=== PATIENT | female | born 1960 | race Caucasian/White ===

== ENCOUNTER 2025-05-08 16:39 | Emergency (ER) | payer MEDICARE, SELFPAY ==
[2025-05-08 16:42] VITALS: BP 115/72
--- NOTE | 2025-05-08 17:09 | ED.GENMED ---
History of Present Illness
General
Chief Complaint: Abnormal Lab Value
Time Seen by Provider: 05/08/25 17:09
History of Present Illness
History of Present Illness:
FOCUSED PAST MEDICAL HISTORY
- History of left femur removal due to infection, VSD, smoking till age of 22, hyperlipidemia, migraines
REVIEW OF OLD RECORDS
- Hemoglobin was 10.7 in September 2022
Note:
CHIEF COMPLAINT(S)
Increasing shortness of breath.
HISTORY OF PRESENT ILLNESS
The patient presents with an increasing shortness of breath, which led her primary care doctor to refer her for evaluation. She has a history of iron deficiency anemia and is scheduled for an iron infusion on the upcoming Sunday. Recently, she has
experienced episodes of tachycardia, although her heart rate normalized prior to discharge. She denies experiencing any chest pain, weight gain, or lower extremity edema. Her most recent hemoglobin level was recorded at 10.7 in 2022, with another
recent measurement of 8.8. Her iron level has been noted at 40, which remains within the normal range. There is no clear indication for blood transfusion or hospital admission. The patient is aware of her hiatal hernia, and a digital rectal
examination revealed no growth or fecal occult blood.
PHYSICAL EXAM
General: Alert, no acute distress.
Skin: Warm, dry.
Head: Normocephalic, atraumatic.
Neck: Supple, trachea midline.
Eye, Ears, Nose, Mouth, and Throat: Oral mucosa moist.
Cardiovascular: Normal peripheral perfusion, no edema.
Respiratory: Respirations are non-labored. She is not tachycardic nor tachypneic and breath sounds are clear
Gastrointestinal: Abdomen nondistended.
Back: Normal range of motion, normal alignment.
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
Neurological: Alert and oriented to person, place, time, and situation. No focal neurological deficit observed.
Psychiatric: Cooperative, appropriate mood and affect.
PROBLEM LIST
1. Acute: Shortness of breath.
2. Chronic: Iron deficiency anemia, scheduled for an iron infusion.
PLAN
The patient is to follow up with her planned iron infusion on the scheduled date. Monitoring of hemoglobin and iron levels will continue to assess response to treatment.
DIFFERENTIAL DIAGNOSIS
The Differential Diagnosis includes, in no particular order and is not limited to:
1. Anemia-induced dyspnea
2. Pulmonary embolism
3. Congestive heart failure
4. Chronic obstructive pulmonary disease exacerbation
5. Acute coronary syndrome
6. Pulmonary hypertension
7. Asthma exacerbation
8. Pneumonia
9. Anxiety
10. Hiatal hernia-related symptoms
RADIOLOGY
- CT shows no PE and shows a large hiatal hernia
Sinus on the monitor
LABS
- Hemoglobin 8.8, troponin and BNP unremarkable
UPDATE
SUMMARY OF ENCOUNTER
The patient presented with an increasing shortness of breath and was assessed in the emergency department. Her workup was relatively unremarkable for acute causes of her symptoms. Although her hemoglobin level has dropped to 8.8 from a recent
outpatient level of 9.2, she is being managed as an outpatient for iron deficiency anemia with an upcoming iron infusion scheduled. She is currently anticoagulated and her stool is heme-negative. There is no clear indication for admission, therefore
she will continue outpatient management.
DISPOSITION
Discharge.
PLAN
The patient is to continue with the planned iron infusion. Monitoring of hemoglobin levels will continue to ensure an adequate response to treatment.
INDEPENDENT REVIEW OF LABS AND INTERPRETATION OF TESTS
My independent review of hemoglobin levels indicates a decrease to 8.8 from a previous outpatient measurement of 9.2. Stool is heme-negative.
MEDICATION RECONCILIATION
- Hemoglobin levels to be monitored.
- The patient is already anticoagulated.
MEDICAL DECISION MAKING
- Number and Complexity of Problems Addressed: Chronic conditions affecting care include iron deficiency anemia and the ongoing management thereof.
- Data:
- Category 1: Reviewed current and recent hemoglobin levels.
- Category 2: Independent analysis of lab results, noting the decrease in hemoglobin.
- Risk: Consideration of Admission/Observation: Escalation of care including admission/observation was considered given the complexity and risk of the patients presenting complaint and underlying comorbidities. However, ultimately, outpatient
management was deemed appropriate. The workup was reassuring, with no acute life-threatening processes identified, and the patient is reliable for follow-up.
DIAGNOSIS
- Iron deficiency anemia, uncomplicated (ICD-10: D50.9)
Past History
Past History
ED Past Medical History: Asthma, Fibromyalgia, GERD, Hypercholesterolemia, Other (TIA, Endometriosis, Sleep apnea) and Other (Recurrent left hip MRSA infection)
ED Past Surgical History: Appendectomy, Cholecystectomy and Orthopedic
Social History
Tobacco: Former smoker
Alcohol: None
Personal:
Living: with family
Phy Exam
Physical Exam
Physical Exam:
See HPI
Course
Orders/Labs/Results
Orders:
Orders
05/08/25 17:19
CT Chest PE Study Urgent
Comment:
Reason For Exam: GONZALES/SOB, immobile
05/08/25 17:29
Type+Screen Urgent
Basic Metabolic Panel Urgent
Complete Blood Count/With Diff Urgent
Iron Urgent
NT-proBNP Urgent
Troponin I Urgent
Abnormal Lab Results
05/08/25
17:29
RBC 2.95 L 10^6/uL
(4.20-5.40)
Hgb 8.8 L g/dL
(12.0-16.0)
Hct 28.2 L %
(37.0-47.0)
MCHC 31.2 L g/dL
(33.0-37.0)
RDW 19.9 H %
(11.5-14.5)
Absolute Lymphs (auto) 1.1 L 10^3/uL
(1.2-3.4)
Absolute Monos (auto) 0.7 H 10^3/uL
(0.1-0.6)
Monocytes % 12.9 H %
(1.7-9.3)
BUN 21 H mg/dl
(7-17)
05/08/25 17:29
05/08/25 17:29
Vital Signs
Initial and Last Documented VS:
Initial Vital Signs
Temp Pulse Resp BP Pulse Ox
36.8 C 81 16 115/72 98
05/08/25 16:42 05/08/25 16:42 05/08/25 16:42 05/08/25 16:42 05/08/25 16:42
Last Documented Vital Signs
Temp Pulse Resp BP Pulse Ox
36.8 C 96 18 105/75 99
05/08/25 16:42 05/08/25 19:03 05/08/25 19:03 05/08/25 19:01 05/08/25 19:07
*Pulse Oximetry
SaO2: 98
Oxygen Mode of Delivery: Room air
Patient hypoxic: no
*Critical Care Note
Total Time (30-74mins, 75-104mins- exclusive of procedures): Not Applicable
ED Attending Note
-
Portions of this chart may have been created with voice recognition software.� Occasional wrong word or��sound alike� substitutions may have occurred due to the inherent limitations of voice recognition software.
Discharge Plan
Departure
Patient Disposition: Home (Routine Discharge)
Date of Disposition: 05/08/25
Time of Disposition: 20:09
Patient with high blood pressure during this ER visit?: Yes
Discharge Problem:
Shortness of breath
Instructions: Shortness of breath, BLOOD PRESSURE
Prescriptions:
No Action
C,E,copper,zinc [id number] 1 CAP capsule
2 cap PO DAILY
albuterol sulfate 1 PUFF HFA aerosol inhaler
2 puff inhalation R Q4HPRN PRN (Reason: shortness of breath) Qty: 1 0RF
prednisone 5 MG tablet
5 mg PO DAILY
clopidogrel 75 MG tablet
75 mg PO DAILY
famotidine 20 MG tablet
20 mg PO BID
calcium carbonate [Oyster Shell Calcium 500] 500 MG tablet
1,000 mg PO HS
calcium carbonate [Antacid (calcium carbonate)] 1 TABLET tablet,chewable
1 tab PO Q4HPRN PRN (Reason: gerd)
hydroxychloroquine 200 MG tablet
400 mg PO QPM
magnesium [magnesium gluconate] 200 MG tablet
1,350 mg PO DAILY
Patient Comments:
patient has 450mg tablets at home take 3 tabs
High Potency Probiotic 1 CAP capsule
2 cap PO DAILY
cholecalciferol (vitamin D3) 2,000 UNITS tablet
5,000 units PO DAILY
multivitamin with folic acid [Tab-A-Kerry] 1 TABLET tablet
1 tab PO DAILY
B-complex with vitamin C 1 CAPLET tablet
2 cap PO DAILY
turmeric root extract 500 MG capsule
1,500 mg PO DAILY
Rhopressa 2.5 ML drops
1 drp LEFT EYE QPM
pravastatin 40 mg tablet
40 mg PO QPM
folic acid 1 mg Tablet
1 mg PO DAILY
duloxetine 60 mg capsule,delayed release(DR/EC)
60 mg PO DAILY
pregabalin 150 mg capsule
150 mg PO HS
Nyquil Liquid
30 ml PO HSPRN PRN (Reason: cough, congestion)
loperamide 2 mg Capsule
2 mg PO Q6HPRN PRN (Reason: diarrhea) Qty: 0 0RF
oxycodone 5 mg tablet, oral only
5 mg PO Q4H PRN (Reason: severe pain) Qty: 30 0RF
Rx Instructions:
1.5 tabs (7.5mg) every 4 hours as needed
Referrals:
Antelmo Rosado, [Family Provider, General]
Activity Restrictions/Additional Instructions:
The CAT scan of the lungs showed no blood clot. A large hiatal hernia is noted. There is no sign of heart attack or congestive heart failure. Your hemoglobin level is 8.8 and last records here show a hemoglobin of 10.9 in September 2022. There is
no blood noted in your stool on digital rectal examination. Iron level tonight was still within range at 40. Follow-up with your doctors as an outpatient. Return here if worse or other concerns.
Interventions
Interventions:
*Risk Screen - Suicide Last Done: 05/08/25 16:42
*General Assessment Last Done: 05/08/25 17:24
*Neglect/Abuse Screening Last Done: 05/08/25 16:42
*ED- Fall Risk Assessment Last Done: 05/08/25 17:24
*ED COVID-19 Vaccine History Last Done: 05/08/25 17:24
*ED Influenza Vaccine History Last Done: 05/08/25 17:24
Discharge Date and Time
Print Language: BRAZILIAN
[2025-05-08 17:24] VITALS: BMI 35.9
[2025-05-08 17:41] LABS: Hematocrit 28.2 % (37.0-47.0); Hemoglobin 8.8 g/dL (12.0-16.0); Mean Corp Hgb Conc. 31.2 g/dL (33.0-37.0); Mean Corpuscular Volume 95.6 fL (81.0-99.0); Nucleated Red Blood Cells % 0 %; Platelet Count 255 10^3/uL (130-400); Red Cell Dist. Width 19.9 % (11.5-14.5)
[2025-05-08 17:59] LABS: Blood Urea Nitrogen 21 mg/dl (7-17); Calcium 9.1 mg/dl (8.4-10.2); Carbon Dioxide 24 mmol/L (22-30); Chloride 107 mmol/L (98-107); Estimated Creatinine Clearance 97 ml/min; Glucose 94 mg/dl (70-99); Iron 40 ug/dl (37-170); Potassium 4.6 mmol/L (3.5-5.1); Sodium 138 mmol/L (135-145); eGFR > 60.00
[2025-05-08 18:02] LABS: Troponin I < 0.012 ng/ml
[2025-05-08 19:01] VITALS: BP 105/75
== END 2025-05-08 20:43 | disposition home or self-care (01) ==
LOC: EMR 16:39
PROVIDERS: EMERGENCY PHYSICIAN Emergency Medicine; FAMILY PHYSICIAN General Practice
DX: R06.02 Shortness of breath (principal); D50.9 Iron deficiency anemia, unspecified; E78.00 Pure hypercholesterolemia, unspecified; G47.30 Sleep apnea, unspecified; J45.909 Unspecified asthma, uncomplicated; M79.7 Fibromyalgia; Z86.14 Personal history of Methicillin resistant Staphylococcus aureus infection; Z86.73 Personal history of transient ischemic attack (TIA), and cerebral infarction without residual deficits; Z87.891 Personal history of nicotine dependence; Z90.49 Acquired absence of other specified parts of digestive tract
CPT/HCPCS: 99284; 71275; 80048; 83540; 83880; 84484; 85025; 86850; 86900; 86901; 93005; Q9967